=== PATIENT | male | born 1985 | race Two or more races ===

== ENCOUNTER 2017-02-22 13:20 | Emergency (ER) | payer SELFPAY ==
[~2017-02-22] VITALS: Ht 185.4 cm; Wt 73.0 kg
[2017-02-22 13:31] VITALS: BP 102/75
[2017-02-22] MEDS ORDERED: ACETAMINOPHEN 650MG/20.3ML UDC PO ONE (14:45)
== END 2017-02-22 17:34 | disposition home or self-care (01) ==
LOC: ER 15:38
DX: G51.0 Bell's palsy (principal); R51 Headache; H54.41 Blindness, right eye, normal vision left eye; R29.810 Facial weakness; F17.200 Nicotine dependence, unspecified, uncomplicated; F12.10 Cannabis abuse, uncomplicated
CPT/HCPCS: 70450; 99284

== ENCOUNTER 2019-01-10 09:13 | Emergency (ER) | payer MEDICAID, OTHER ==
[~2019-01-10] VITALS: Ht 185.4 cm; Wt 75.0 kg
[2019-01-10] MEDS ORDERED: IBUPROFEN 600MG TABLET PO ONE (11:30)
[2019-01-10 11:40] VITALS: BP 122/65
== END 2019-01-10 11:41 | disposition home or self-care (01) ==
LOC: ER 10:24
DX: S39.012A Strain of muscle, fascia and tendon of lower back, initial encounter (principal); F12.10 Cannabis abuse, uncomplicated; X58.XXXA Exposure to other specified factors, initial encounter; Y93.89 Activity, other specified; Y92.89 Other specified places as the place of occurrence of the external cause; Y99.8 Other external cause status
CPT/HCPCS: 99283

== ENCOUNTER 2021-02-26 10:52 | Emergency (ER) | payer MEDICAID, OTHER ==
[~2021-02-26] VITALS: Ht 185.4 cm; Wt 73.0 kg
[2021-02-26 12:25] VITALS: BP 124/85
== END 2021-02-26 12:25 | disposition home or self-care (01) ==
LOC: ER 10:52
DX: H57.89 Other specified disorders of eye and adnexa (principal); F12.10 Cannabis abuse, uncomplicated; H54.61 Unqualified visual loss, right eye, normal vision left eye
CPT/HCPCS: 99281